=== PATIENT | male | born 2000 | race African-American/Black ===

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

== ENCOUNTER 2018-08-08 09:36 | Inpatient (IN) | payer OTHER ==
[2018-08-08 10:06] VITALS: BMI 27.8
--- NOTE | 2018-08-08 10:21 | HP ---
CIWA Score - Admission Criteria OASAS Guidelines: Admission for Medically Managed Detox: Requires at least one of the followin. CIWA greater than 12 2. Seizures within the past 24 hours 3. Delirium tremens within the past 24 hours 4. Hallucinations within the past 24 hours 5. Acute intervention needed for co occurring medical disorder 6. Acute intervention needed for co occurring psychiatric disorder 7. Severe withdrawal that cannot be handled at a lower level of care (continued vomiting, continued diarrhea, abnormal vital signs) requiring intravenous medication and/or fluids 8. Admission ROS S - HPI Chief Complaint: i am here for rehab from marijuana Allergies/Adverse Reactions: Allergies Allergy/AdvReac Type Severity Reaction Status Date / Time No Known Allergies Allergy Verified 11/25/17 12:03 History of Present Illness: this 18 years old male with marijuana dependence,seeking rehab,has been in [facility] 5 days/week for 1 year, mandated on probation asthma on albuterol inhaler and nebulizer fail out patient program need rehab in the control environment,patient is enthusiastic and motivated to move on with life,back on track Exam Limitations: No Limitations - Ebola screening Have you traveled outside of the country in the last 21 days: No Have you had contact with anyone from an Ebola affected area: No Have you been sick,other than usual withdrawal symptoms: No Do you have a fever: No - Review of Systems Constitutional: No Symptoms Reported EENT: reports: No Symptoms Reported Respiratory: reports: No Symptoms reported Cardiac: reports: No Symptoms Reported GI: reports: No Symptoms Reported : reports: No Symptoms Reported Musculoskeletal: reports: No Symptoms Reported Integumentary: reports: No Symptoms Reported Neuro: reports: No Symptoms reported Endocrine: reports: No Symptoms Reported Hematology: reports: No Symptoms Reported Psychiatric: reports: No Sypmtoms Reported Other Systems: Reviewed and Negative Patient History - Patient Medical History Hx Anemia: No Hx Asthma: Yes (on albuterol inhaler,and nebulizer) Hx Chronic Obstructive Pulmonary Disease (COPD): No Hx Cancer: No Hx Cardiac Disorders: No Hx Congestive Heart Failure: No Hx Hypertension: No Hx Hypercholesterolemia: No Hx Pacemaker: No HX Cerebrovascular Accident: No Hx Seizures: No Hx Dementia: No Hx Diabetes: No Hx Gastrointestinal Disorders: No Hx Liver Disease: No Hx Genitourinary Disorders: No Hx Sexually Transmitted Disorders: No Hx Renal Disease (ESRD): No Hx Thyroid Disease: No Hx Human Immunodeficiency Virus (HIV): No (Last Tested: 2017: NEGATIVE.) Hx Hepatitis C: No (Last Tested: 2017: NEGATIVE.) Hx Depression: No Hx Suicide Attempt: No Hx Bipolar Disorder: No Hx Schizophrenia: No Other Medical History: no suicidal,no homicidal - Patient Surgical History Past Surgical History: No Hx Neurologic Surgery: No Hx Cataract Extraction: No Hx Cardiac Surgery: No Hx Lung Surgery: No Hx Breast Surgery: No Hx Breast Biopsy: No Hx Abdominal Surgery: No Hx Appendectomy: No Hx Cholecystectomy: No Hx Genitourinary Surgery: No Hx Orthopedic Surgery: No Other Surgical History: DENIES. Anesthesia Reaction: No - PPD History Previous Implant?: Yes Documented Results: Negative w/proof Implanted On Prior [facility] Admission?: Yes Date: 11/27/17 Results: 0 mm PPD to be Administered?: No - Smoking Cessation Smoking history: Never smoked Cigars Per Day: 0 Hx Chewing Tobacco Use: No - Substance & Tx. History Hx Alcohol Use: No Hx Substance Use: Yes Substance Use Type: Marijuana Hx Substance Use Treatment: Yes (12/08 [facility]) - Substances Abused Marijuana/Hashish Route: Smoking Frequency: Daily Amount used: 20$ Age of first use: 15 Date of Last Use: 08/08/18 Family Disease History - Family Disease History Family Disease History: Diabetes: Grandparent, Father, Mother (Breast CA.), CA: Mother, Respiratory: Brother (Asthma.) Admission Physical Exam [facility] - Vital Signs Vital Signs: Vital Signs - 24 hr 08/08/18 10:04 Temperature 99.6 F Pulse Rate 92 H Respiratory 20 Rate Blood Pressure 114/61 - Physical General Appearance: Yes: Within Normal Limits, Anxious HEENTM: Yes: Normal ENT Inspection, MATT, Pharynx Normal, Other (keloid left earlobe 0.5x0.5 cm) Respiratory: Yes: Lungs Clear, Normal Breath Sounds, No Respiratory Distress Neck: Yes: Within Normal Limits, Supple, Trachea in good position Breast: Yes: Within Normal Limits Cardiology: Yes: Within Normal Limits, Regular Rhythm, Regular Rate, S1, S2 Abdominal: Yes: Within Normal Limits, Normal Bowel Sounds, Non Tender, Flat, Soft Genitourinary: Yes: Within Normal Limits Back: Yes: Within Normal Limits Musculoskeletal: Yes: Within Normal Limits Extremities: Yes: Within Normal Limits Neurological: Yes: Within Normal Limits, extrusion line operator II-XII NML intact, Fully Oriented, Alert, Motor Strength 5/5 Integumentary: Yes: Within Normal Limits Lymphatic: Yes: Within Normal Limits - Diagnostic (1) Cannabis dependence, uncomplicated Current Visit: No Status: Chronic (2) Asthma Current Visit: No Status: Chronic Qualifiers: Asthma severity: mild Asthma persistence: intermittent Asthma complication type: uncomplicated Qualified Code(s): J45.20 - Mild intermittent asthma, uncomplicated (3) Keloid of skin Current Visit: Yes Status: Acute Cleared for Admission S - Detox or Rehab Claeared for Rehab Admission: Yes [facility] Breath Alcohol Content Breath Alcohol Content: 0 Urine Drug Screen - Results Drug Screen Negative: No Urine Drug Screen Results: THC-Marijuana Inpatient Rehab Admission - Rehab Decision to Admit Inpatient rehab admission?: Yes - Initial Determination Are CD services needed?: Yes Free of communicable disease: Yes Not in need of hospitalization: Yes - Rehab Admission Criteria Previous failed treatment: Yes Poor recovery environment: Yes Comorbidities: Yes Lacks judgement: No Patient is meeting Inpatient Rehab admission criteria:: Yes
[2018-08-08] MEDS ORDERED: hydrOXYzine PAMOATE 50 MG CAPSULE (FP) PO PRN (10:35)
[2018-08-08] MEDS ORDERED: MAGNESIUM CITRATE 300 ML BOTTLE PO PRN (10:35)
[2018-08-08] MEDS ORDERED: IBUPROFEN 400 MG TABLET (FP) PO PRN (10:35)
[2018-08-08] MEDS ORDERED: ACETAMINOPHEN 325 MG TABLET (FP) PO PRN (10:35)
[2018-08-08] MEDS ORDERED: MENTHOL/PHENOL 1 EACH UD MM PRN (10:35)
[2018-08-08] MEDS ORDERED: MAG HYDROX/AL HYDROX/SIMETH 30 ML UNIT-DOSE CUP PO PRN (10:35)
[2018-08-08] MEDS ORDERED: P-EPHED 60MG/TRIPROLIDI 2.5MG TABLET PO PRN (10:35)
[2018-08-08] MEDS ORDERED: guaiFENesin 200 MG/10 ML 10 ML UNIT-DOSE CUPS PO PRN (10:35)
[2018-08-08] MEDS ORDERED: LOPERAMIDE HCL 2 MG CAPSULE PO PRN (10:35)
[2018-08-08] MEDS ORDERED: MAGNESIUM HYDROX 2400MG/30ML ORAL SUSPENSION 30 ML CUP PO PRN (10:35)
[2018-08-08 14:16] LABS: HEMOGLOBIN 13.8 GM/dL (11.7-16.9); MCH 22.1 pg (25.7-33.7); MCHC 32.8 g/dl (32.0-35.9); MEAN CELL VOLUME 67.3 fl (80-96); MEAN PLT VOLUME 10.2 fl (7.5-11.1); PLATELET COUNT 210 K/MM3 (134-434); RBC 6.23 M/mm3 (4.00-5.60); RDW 17.1 % (11.9-15.9); WHITE BLOOD COUNT 8.7 K/mm3 (4.0-10.0)
[2018-08-08 14:35] LABS: ALBUMIN 3.9 g/dl (3.4-5.0); ALK PHOS 123 U/L (45-117); ANION GAP 3 MMOL/L (8-16); BILIRUBIN,TOTAL 0.2 mg/dL (0.2-1); BLOOD UREA NITROGEN 15 mg/dL (7-18); CALCIUM 8.9 mg/dL (8.5-10.1); CHLORIDE 107 mmol/L (98-107); CO2 27 mmol/L (21-32); GLUCOSE,RANDOM 87 mg/dL (74-106); POTASSIUM 4.6 mmol/L (3.5-5.1); SGOT/AST 17 U/L (15-37); SGPT/ALT 27 U/L (13-61); SODIUM 138 mmol/L (136-145); TOT PROT 7.1 g/dl (6.4-8.2)
[2018-08-08] MEDS: THIAMINE HCL 100 MG TABLET (FP) PO SCH (21:44)
[2018-08-09 00:10] LABS: URINE APPEARANCE CLEAR; URINE BILIRUBIN NEGATIVE (<2.0 mg/dL); URINE COLOR YELLOW; URINE GLUCOSE (UA) NEGATIVE (NEGATIVE); URINE KETONE NEGATIVE (NEGATIVE); URINE LEUK ESTERASE NEGATIVE (NEGATIVE); URINE NITRITE NEGATIVE (NEGATIVE); URINE PROTEIN NEGATIVE (NEGATIVE); URINE UROBILINOGEN NEGATIVE mg/dL (0.2-1.0)
[2018-08-09] MEDS: ALBUTEROL SO4 0.083% IH SOL 2.5 MG/3 ML VIAL.NEB. NEB PRN ×5 (00:40→23:48)
[2018-08-09] MEDS ORDERED: ALBUTEROL SO4 8 GM HFA INHALER IH PRN (07:17)
[2018-08-09] MEDS: PRENATAL VITAMINS W/ FOLIC ACID TABLET (FP) PO SCH (10:02)
[2018-08-09] MEDS: THIAMINE HCL 100 MG TABLET (FP) PO SCH (21:28)
[2018-08-09] MEDS: MELATONIN 5 MG TABLETS PO PRN (21:28)
[2018-08-10] MEDS: ALBUTEROL SO4 0.083% IH SOL 2.5 MG/3 ML VIAL.NEB. NEB PRN ×3 (03:27→23:45)
--- NOTE | 2018-08-10 10:03 | PN ---
S Progress Note (SOAP) Subjective: Client c/o wheezing, coughing and needing to get nebulizer treatments every 4 hours. States that when he is in the community, he only needs nebulizer treatments about once a week. States that cough brings up only clear sputum. Using cough medicine but states it is ineffective. Denies environmental allergies. Objective: 08/10/18 10:01 Lungs clear, nares clear, sinus non-tender. Lungs clear all frey. Assessment: 08/10/18 10:02 Asthma Plan: Prednisone 5mg x 3 days given.
[2018-08-10] MEDS: PRENATAL VITAMINS W/ FOLIC ACID TABLET (FP) PO SCH (11:28)
[2018-08-10] MEDS: predniSONE 5 MG TABLET (UD) PO SCH (11:28)
[2018-08-10] MEDS: THIAMINE HCL 100 MG TABLET (FP) PO SCH (21:09)
[2018-08-10] MEDS: MELATONIN 5 MG TABLETS PO PRN (21:09)
[2018-08-11] MEDS: ALBUTEROL SO4 0.083% IH SOL 2.5 MG/3 ML VIAL.NEB. NEB PRN ×2 (06:31→23:39)
[2018-08-11] MEDS: predniSONE 5 MG TABLET (UD) PO SCH (10:19)
[2018-08-11] MEDS: PRENATAL VITAMINS W/ FOLIC ACID TABLET (FP) PO SCH (10:19)
[2018-08-11] MEDS: THIAMINE HCL 100 MG TABLET (FP) PO SCH (21:29)
[2018-08-11] MEDS: MELATONIN 5 MG TABLETS PO PRN (21:29)
[2018-08-12] MEDS: ALBUTEROL SO4 0.083% IH SOL 2.5 MG/3 ML VIAL.NEB. NEB PRN (03:08)
[2018-08-12] MEDS: predniSONE 5 MG TABLET (UD) PO SCH (10:16)
[2018-08-12] MEDS: PRENATAL VITAMINS W/ FOLIC ACID TABLET (FP) PO SCH (10:16)
--- NOTE | 2018-08-12 14:44 | PN ---
S Progress Note Note: PATIENT SEEN FOR FOLLOW UP COMPLAINTS OF NOCTURNAL SOB. CURRENTLY ON PREDNISONE 5MG DAILY X 3 DAYS. PMH INCLUDES ASTHMA. Vital Signs Temperature 97.8 F 08/12/18 06:32 Pulse Rate 79 08/12/18 06:32 Respiratory Rate 18 08/12/18 06:32 Blood Pressure 124/78 08/12/18 06:32 O2 Sat by Pulse Oximetry (%) 98% PE; ALERT AND ORIENTED X 3 SKIN WARM AND DRY CAR S1S2 RESP CTA BL EXT FULL ROM, AMB AD JELENA A/P ASTHMA WILL CONTINUE WITH CURRENT TREATMENT MONITOR CLINICALLY
[2018-08-12] MEDS: THIAMINE HCL 100 MG TABLET (FP) PO SCH (21:20)
[2018-08-12] MEDS: MELATONIN 5 MG TABLETS PO PRN (21:20)
[2018-08-13] MEDS: ALBUTEROL SO4 0.083% IH SOL 2.5 MG/3 ML VIAL.NEB. NEB PRN ×2 (07:43→23:45)
[2018-08-13] MEDS: PRENATAL VITAMINS W/ FOLIC ACID TABLET (FP) PO SCH (10:32)
--- NOTE | 2018-08-13 17:29 | PN ---
[facility] Progress Note Note: NOTIFIED BY RN ISAIAH THAT PATIENT HIT RIGHT ELBOW ON BEDSIDE TABLE. PATIENT EXAMINED AND DENIES PAIN TO RIGHT ARM/ELBOW. + FULL ROM OF RUE, NO SWELLING OR REDNESS NOTED. +RADIAL PULSES B/L. NO ACTIVE BLEEDING. WILL CONTINUE TO MONITOR CLINICALLY. Vital Signs Temperature 97.9 F 08/13/18 15:33 Pulse Rate 79 08/13/18 15:33 Respiratory Rate 18 08/13/18 15:33 Blood Pressure 126/69 08/13/18 15:33 O2 Sat by Pulse Oximetry (%)
[2018-08-13] MEDS: THIAMINE HCL 100 MG TABLET (FP) PO SCH (21:33)
[2018-08-13] MEDS: MELATONIN 5 MG TABLETS PO PRN (21:33)
[2018-08-14] MEDS: PRENATAL VITAMINS W/ FOLIC ACID TABLET (FP) PO SCH ×2 (10:53→13:22)
[2018-08-14] MEDS: THIAMINE HCL 100 MG TABLET (FP) PO SCH (21:19)
[2018-08-14] MEDS: MELATONIN 5 MG TABLETS PO PRN (21:19)
[2018-08-15] MEDS: ALBUTEROL SO4 0.083% IH SOL 2.5 MG/3 ML VIAL.NEB. NEB PRN ×2 (00:05→23:35)
[2018-08-15] MEDS: PRENATAL VITAMINS W/ FOLIC ACID TABLET (FP) PO SCH (11:00)
[2018-08-15] MEDS: MELATONIN 5 MG TABLETS PO PRN (21:13)
[2018-08-15] MEDS: THIAMINE HCL 100 MG TABLET (FP) PO SCH (21:13)
[2018-08-16] MEDS: PRENATAL VITAMINS W/ FOLIC ACID TABLET (FP) PO SCH (10:15)
[2018-08-16] MEDS: MELATONIN 5 MG TABLETS PO PRN (21:19)
[2018-08-16] MEDS: THIAMINE HCL 100 MG TABLET (FP) PO SCH (21:19)
[2018-08-16] MEDS: ALBUTEROL SO4 0.083% IH SOL 2.5 MG/3 ML VIAL.NEB. NEB PRN (23:15)
[2018-08-17] MEDS: PRENATAL VITAMINS W/ FOLIC ACID TABLET (FP) PO SCH (10:23)
[2018-08-17] MEDS: THIAMINE HCL 100 MG TABLET (FP) PO SCH (21:20)
[2018-08-17] MEDS: MELATONIN 5 MG TABLETS PO PRN (21:20)
[2018-08-17] MEDS: ALBUTEROL SO4 0.083% IH SOL 2.5 MG/3 ML VIAL.NEB. NEB PRN (23:54)
[2018-08-18] MEDS: PRENATAL VITAMINS W/ FOLIC ACID TABLET (FP) PO SCH (10:35)
[2018-08-18] MEDS ORDERED: PT OWN MED DRAWER 7, Y5N ONE (10:37)
[2018-08-18] MEDS: MELATONIN 5 MG TABLETS PO PRN (21:40)
[2018-08-18] MEDS: THIAMINE HCL 100 MG TABLET (FP) PO SCH (21:40)
[2018-08-18] MEDS: ALBUTEROL SO4 0.083% IH SOL 2.5 MG/3 ML VIAL.NEB. NEB PRN (22:57)
[2018-08-19 06:36] VITALS: BP 126/75; PULSE 73; TEMP 98.7
[2018-08-19] MEDS: PRENATAL VITAMINS W/ FOLIC ACID TABLET (FP) PO SCH (09:30)
--- NOTE | 2018-08-19 10:42 | PN ---
[facility] Progress Note Note: REHAB DISCHARGE NOTE: PATIENT COMPLETED REHAB TODAY AND HAS AFTERCARE ARRANGED FOR NEW FOCUS, FIRST APPOINTMENT AT CLINIC SCHEDULED FOR TODAY. PATIENT STATES HE FEELS BETTER SINCE ADMISSION AND ACCOMPLISHED ALL REHAB GOALS. PATIENT IS MEDICALLY STABLE AND DENIES SI/HI. HOME MED LIST REVIEWED, PATIENT REPORTS HAVING ALBUTEROL INH AT HOME. PATIENT ENCOURAGED BY [employer] TO CONTINUE WITH AFTERCARE AND GROUP MEETINGS TO PREVENT RELAPSE. Vital Signs Temperature 98.7 F 08/19/18 06:34 Pulse Rate 73 08/19/18 06:34 Respiratory Rate 18 08/19/18 06:34 Blood Pressure 126/75 08/19/18 06:34 O2 Sat by Pulse Oximetry (%) Home Medications Medication Instructions Recorded Albuterol 0.083% Nebulizer Yvette 1 neb NEB Q4H PRN 11/25/17 [Ventolin 0.083%] Albuterol Sulfate Inhaler - 1 - 2 inh PO QID #1 inhaler 12/07/17 [Ventolin HFA Inhaler -] Laboratory Tests 08/08/18 08/08/18 08/08/18 11:20 12:00 12:00 WBC 8.7 RBC 6.23 H Hgb 13.8 Hct 42.0 MCV 67.3 L MCH 22.1 L MCHC 32.8 RDW 17.1 H Plt Count 210 MPV 10.2 Sickle Cell Screen Sodium 138 Potassium 4.6 Chloride 107 Carbon Dioxide 27 Anion Gap 3 L BUN 15 Creatinine 1.0 Creat Clearance w eGFR 95.26 Random Glucose 87 Calcium 8.9 Total Bilirubin 0.2 AST 17 ALT 27 Alkaline Phosphatase 123 H Total Protein 7.1 Albumin 3.9 Urine Color Urine Appearance Urine pH Ur Specific [place] Urine Protein Urine Glucose (UA) Urine Ketones Urine Blood Urine Nitrite Urine Bilirubin Urine Urobilinogen Ur Leukocyte Esterase RPR Titer HIV 1&2 Antibody Screen Negative HIV P24 Antigen Negative 08/08/18 08/08/18 08/08/18 12:00 12:00 22:00 WBC RBC Hgb Hct MCV MCH MCHC RDW Plt Count MPV Sickle Cell Screen Negative Sodium Potassium Chloride Carbon Dioxide Anion Gap BUN Creatinine Creat Clearance w eGFR Random Glucose Calcium Total Bilirubin AST ALT Alkaline Phosphatase Total Protein Albumin Urine Color Yellow Urine Appearance Clear Urine pH 5.0 Ur Specific [place] 1.024 Urine Protein Negative Urine Glucose (UA) Negative Urine Ketones Negative Urine Blood Negative Urine Nitrite Negative Urine Bilirubin Negative Urine Urobilinogen Negative Ur Leukocyte Esterase Negative RPR Titer Nonreactive HIV 1&2 Antibody Screen HIV P24 Antigen
== END 2018-08-19 09:45 | disposition home or self-care (01) | DRG 772 ==
LOC: YASAS 09:36 → Y3W 11:26
PROVIDERS: ADMIT Neuromusculoskeletal Medicine & OMM; ATTEND Neuromusculoskeletal Medicine & OMM
PROC: HZ42ZZZ Group Counseling for Substance Abuse Treatment, Cognitive-Behavioral (ICD-10-PCS; principal; 2018-08-08)
DX: F12.20 Cannabis dependence, uncomplicated (principal); J45.20 Mild intermittent asthma, uncomplicated; L91.0 Hypertrophic scar
CPT/HCPCS: 36415; 80053; 81003; 85027; 85660; 86593; 87389; 94640